=== PATIENT | male | born 1990 | race Caucasian/White ===

== ENCOUNTER 2016-06-27 16:20 | Emergency (ER) | payer BC, OTHER ==
[~2016-06-27] VITALS: Ht 193 cm; Wt 97.2 kg
[2016-06-27 16:26] VITALS: TEMP 36.7; Ht 193 cm; Wt 97.2 kg
[2016-06-27] MEDS ORDERED: HYDROCODONE/ACETAMINOPHEN 7.5/325MG TAB PO STA (16:43)
[2016-06-27] MEDS ORDERED: SUPPLEMENTS (16:47)
[2016-06-27] MEDS ORDERED: MULT-506 PO (16:47)
[2016-06-27 17:13] LABS: BASO % 0.2 %; BASO ABS # 0.01 K/uL (0-0.2); COMPLETE YES; IG% 0.2 %; LYMPH ABS # 1.58 K/uL (1.2-3.4); MEAN CELL VOLUME 87.5 fL (80-100); MEAN CORPUSCULAR HEMOGLOBIN 29.8 pg (25-34); MEAN PLATELET VOLUME 9.9 fL (7.4-10.4); MONO % 9.2 %; NEUT % 62.4 %; PLATELET COUNT 176 K/uL (130-400); RED BLOOD COUNT 5.14 M/uL (4.7-6.1); WHITE BLOOD COUNT 6.08 K/uL (4.8-10.8)
--- NOTE | 2016-06-27 17:24 | DIAGNOSTIC IMAGING REPORT ---
RIGHT PELVIS/UNILATERAL HIP 2-3VIEWS CLINICAL HISTORY: Right medial thigh pain/groin pain Right pain COMPARISON: None. DISCUSSION: The bones and joint spaces appear intact. There is no evidence of fracture, dislocation or bony disease. There is no evidence for soft tissue swelling. IMPRESSION: Negative study. Electronically signed by: Ronald Rodriguez M.D. 06/27/2016 5:22 PM Dictated Date/Time: 06/27/2016 5:20 PM
[2016-06-27 17:31] LABS: CALCIUM 9.4 mg/dl (8.5-10.1); CREATININE 1.3 mg/dl (0.60-1.40); POTASSIUM 4.3 mmol/L (3.5-5.1)
--- NOTE | 2016-06-27 17:44 | EMERGENCY ROOM VISIT NOTE ---
History First contact with patient: 16:28 Chief Complaint: GROIN PAIN Stated Complaint: ACUTE RIGHT HIP/GROIN PAIN History of Present Illness The patient is a 26 year old male who presents to the Emergency Room via private vehicle with complaints of "acute right hip/groin pain". The patient states that over the past 8 days he has been lifting a lot of weight, and performing squats and various exercises. He states that this past Saturday he lifted over a total of 150,000 pounds through squatting. He also states that he played basketball on Saturday. He notes that he was doing fine until yesterday he was walking the dog, and noticed a twinge sensation in the right superior medial/anterior thigh in the right inguinal region that radiated down his leg. He has been taking ibuprofen with little relief. He was seen today by Dr. Oswald, who encouraged the patient to take ibuprofen, and was provided with a referral to orthopedics. The patient has not been able to see orthopedics as of yet. He notes that with walking the pain as a 9/10 that radiates down his leg, and with rest is 6/10. The patient states he has had various hip flexor, and IT band strains in the past but this is different. He denies any urinary symptoms, bowel complications, abdominal pain. He does take supplementation for his weight lifting. Review of Systems A complete 6-point Review of Systems was discussed with the patient, with pertinent positives and negatives listed in the History of Present Illness. All remaining Review of Systems questions can be considered negative unless otherwise specified. Past Medical/Surgical History Medical Problems: (1) History of reconstruction of anterior cruciate ligament tear (2) knee surgery Family History No pertinent family history. Social History Smoking Status: Never Smoker Alcohol Use: occasionally Housing Status: lives with family Occupation Status: unemployed Current/Historical Medications Scheduled Multivitamin (Multivitamin), 1 TAB PO DAILY Scheduled PRN Hydrocodone/Acetaminophen 5MG/325MG (Marion 5MG/325MG), 1-2 TABLET PO Q6H PRN for Pain Miscellaneous Medications [Supplements], Unknown Dose Allergies Coded Allergies: Amoxicillin (Unverified Allergy, Unknown, UNKNOWN, 06/27/16) BEE STING (Unverified Allergy, Unknown, UNKNOWN, 06/27/16) Cephalosporins (Unverified Adverse Reaction, Unknown, 06/27/16) Penicillins (Unverified Adverse Reaction, Unknown, 06/27/16) Physical Exam Vital Signs Date Time Temp Pulse Resp B/P Pulse Ox O2 Delivery O2 Flow Rate FiO2 06/27/16 18:11 79 18 170/93 100 06/27/16 16:26 36.7 91 18 156/93 95 Room Air Pain Rating (0-10): 6.0 Physical Exam VITAL SIGNS - Vital signs and nursing notes were reviewed. Patient is afebrile , hypertensive at 156/93, nontoxic tachycardic and is saturating well on room air 95%. GENERAL -26-year-old male appearing his stated age who is in no acute distress. Communicates well with provider and answers questions appropriately. SKIN - Without rashes. The integument is unremarkable overlying the right anterior thigh. HEAD - NC/AT. EYES - Sclera anicteric. Palpebral conjunctiva pink and moist with no injection noted. EARS - No deformities of external structures noted on gross examination bilaterally. ABDOMEN - Abdominal contour without pulsations or visible masses. BS normoactive all four quadrants. No tenderness, palpable masses, hepatosplenomegaly, or ascites noted. EXTREMITIES - No clubbing or peripheral cyanosis. No pretibial edema present. He is neurovascularly intact in the right lower extremity. No appreciable tenderness upon palpation of the right anterior medial thigh. With active extension of the patient's right hip and leg against my resistance there is increased elicited pain. There is also elicited active range of motion tenderness upon adduction of the right leg. +5/5 strength noted in UE/LE bilaterally. : There is no appreciable tenderness. Genitalia exam is unremarkable. No evidence of hernia. No evidence of torsion. Medical Decision & Procedures ER Provider Diagnostic Interpretation: RIGHT PELVIS/UNILATERAL HIP 2-3VIEWS CLINICAL HISTORY: Right medial thigh pain/groin pain Right pain COMPARISON: None. DISCUSSION: The bones and joint spaces appear intact. There is no evidence of fracture, dislocation or bony disease. There is no evidence for soft tissue swelling. IMPRESSION: Negative study. Electronically signed by: Ronald Rodriguez M.D. 06/27/2016 5:22 PM Dictated Date/Time: 06/27/2016 5:20 PM Laboratory Results 06/27/16 17:00 Red Blood Count 5.14, Mean Corpuscular Volume 87.5, Mean Corpuscular Hemoglobin 29.8, Mean Corpuscular Hemoglobin Concent 34.0, Mean Platelet Volume 9.9, Neutrophils (%) (Auto) 62.4, Lymphocytes (%) (Auto) 26.0, Monocytes (%) (Auto) 9.2, Eosinophils (%) (Auto) 2.0, Basophils (%) (Auto) 0.2, Neutrophils # (Auto) 3.80, Lymphocytes # (Auto) 1.58, Monocytes # (Auto) 0.56, Eosinophils # (Auto) 0.12, Basophils # (Auto) 0.01 06/27/16 17:00 Test 06/27/16 17:00 White Blood Count 6.08 K/uL (4.8-10.8) Red Blood Count 5.14 M/uL (4.7-6.1) Hemoglobin 15.3 g/dL (14.0-18.0) Hematocrit 45.0 % (42-52) Mean Corpuscular Volume 87.5 fL (80-100) Mean Corpuscular Hemoglobin 29.8 pg (25-34) Mean Corpuscular Hemoglobin Concent 34.0 g/dl (32-36) Platelet Count 176 K/uL (130-400) Mean Platelet Volume 9.9 fL (7.4-10.4) Neutrophils (%) (Auto) 62.4 % Lymphocytes (%) (Auto) 26.0 % Monocytes (%) (Auto) 9.2 % Eosinophils (%) (Auto) 2.0 % Basophils (%) (Auto) 0.2 % Neutrophils # (Auto) 3.80 K/uL (1.4-6.5) Lymphocytes # (Auto) 1.58 K/uL (1.2-3.4) Monocytes # (Auto) 0.56 K/uL (0.11-0.59) Eosinophils # (Auto) 0.12 K/uL (0-0.5) Basophils # (Auto) 0.01 K/uL (0-0.2) RDW Standard Deviation 40.4 fL (36.4-46.3) RDW Coefficient of Variation 12.6 % (11.5-14.5) Immature Granulocyte % (Auto) 0.2 % Immature Granulocyte # (Auto) 0.01 K/uL (0.00-0.02) Anion Gap 4.0 mmol/L (3-11) Est Creatinine Clear Calc Drug Dose 105.7 ml/min Estimated GFR () 87.3 Estimated GFR (Non- 75.3 BUN/Creatinine Ratio 20.0 (10-20) Calcium Level 9.4 mg/dl (8.5-10.1) Total Creatine Kinase 249 U/L (39-308) Creatine Kinase MB 2.6 ng/ml (0.5-3.6) Creatine Kinase MB Ratio 1.0 (0-3.0) Medications Administered Medications (Trade) Dose Ordered Sig/Jessa Route Start Time Stop Time Status Last Admin Dose Admin Acetaminophen/ Hydrocodone Bitart (Marion 7.5/325 Tab) 1 tab NOW STAT PO 06/27/16 16:43 06/27/16 16:45 DC 06/27/16 16:58 1 TAB Medical Decision Patient was seen and evaluated as above. After obtaining a thorough history and physical examination it was evident the patient was presenting with what appears to be a strain of the sartorius muscle. He has been participating in a lot of strenuous exercise, therefore the concern for rhabdomyolysis was also increased. I also found to be important to assess the bony structures. Hip radiograph and pelvis were obtained. These are noted as above and are negative. I do not believe any further imaging is necessary. Examination of the genitalia was unremarkable. No evidence of hernia. IV access was initiated , and the above workup was performed. CBC and CMP are unremarkable, other than an elevated BUN at 26. I suspect this is likely secondary to dehydration. The patient was given one Marion tablet for his pain. I reviewed the imaging and blood work with the patient, and do believe he can be discharged to follow up with orthopedics for likely sartorius muscle strain. Physical examination, laboratory work and imaging will help support this diagnosis/exclude other emergent causes. The patient will be given a short-term prescription for Marion , and was instructed not to take Tylenol with this. He was educated upon management, and was fitted with crutches. He was educated upon worrisome symptoms which to return, had questions or discharge and was discharged home in good condition. ] In the evaluation and treatment of this patient, the following differential diagnoses were considered: Hip Fracture, abscess, Sartorious strain, Hip Dislocation, Greater Trochanteric Bursitis, Musculoskeletal Pain, Lumbar Radiculopathy. [place] Drug Monitoring Program Search Results: patient reviewed within database, no issues identified Impression Primary Impression: Muscle strain of thigh Additional Impression: Elevated BUN Departure Information Dispostion Home / Self-Care Condition GOOD Prescriptions Hydrocodone/Acetaminophen 5MG/325MG (Marion 5MG/325MG) Tab 1-2 TABLET PO Q6H Y for Pain, #15 TAB For Initial Treatment Prov: Andrew Rdz PA-C 06/27/16 Referrals Rajeev Urbina M.D. (PCP) Patient Instructions My [facility] Additional Instructions You have been treated in the Emergency Department for Hip Pain/right groin pain. You have received pain medicine in the emergency department which impairs your ability to operate a vehicle. It is illegal for you to drive after receiving these medicines. You have been prescribed NORCO to be used for pain control. This is a narcotic medication. You cannot drive or consume alcohol while on this medicine. This medicine should only be used for pain that cannot be controlled with over-the- counter pain medicines. Your BUN was elevated today. It was 26. This is likely secondary to dehydration, please increase your fluid intake with water and other noncarbonated beverages. Please discuss this with your family doctor, it may be reasonable to compare this with your labs in the past or potentially have this repeated. For pain control, you can use the following [id number] medicines (if >12 yo): - Regular strength (200 mg/tab) Advil (ibuprofen) 1-2 tabs every 4-6 hours as needed. Do not exceed a dose of 3200 mg per day. If this is a recent injury (<24 hrs), ice can be applied to the area of pain for the first 3 days to help decrease pain and inflammation. Ice massages can be performed by freezing water in a paper cup, peeling back the cup to expose the ice and then massaging over the affected area. You have been provided the number for an Orthopaedic Surgeon. You should call this number as soon as possible to establish a follow-up visit from today's Emergency Department visit. Be cautious with your hip movements until your pain is tolerable. Use the crutches you have been provided to keep ALL weight off of the hip until weight bearing is tolerable. Please expect a phone call tomorrow as you have indicated. This should be from the orthopedic group. If you do not receive a phone call, or experience additional complications please dial [phone] Return to the Emergency Department if your current symptoms worsen despite treatment course outlined above. Please return to the emergency department with any new/concerning symptoms. Problem Qualifiers
[2016-06-27] MEDS ORDERED: HYDR-5688 PO (18:00)
[2016-06-27 18:11] VITALS: BP 170/93; PULSE 79; O2SAT 100
== END 2016-06-27 18:13 | disposition home or self-care (01) ==
LOC: C.EDB 16:21 → C.EDD 18:13
DX: S76.911A Strain of unspecified muscles, fascia and tendons at thigh level, right thigh, initial encounter (principal); X58.XXXA Exposure to other specified factors, initial encounter; R79.89 Other specified abnormal findings of blood chemistry; Z87.828 Personal history of other (healed) physical injury and trauma; Z98.890 Other specified postprocedural states; Z88.0 Allergy status to penicillin; Z88.1 Allergy status to other antibiotic agents; Z88.8 Allergy status to other drugs, medicaments and biological substances; Z91.030 Bee allergy status